=== PATIENT | male | born 1955 | race Caucasian/White ===

== ENCOUNTER 2025-01-12 12:01 | Inpatient (IN) | payer BC, OTHER ==
[2025-01-12] VITALS (18 sets, daily range): BP systolic 81–146; BP diastolic 54–97; TEMP 98.3–98.8; O2SAT 100
[~2025-01-12] VITALS: Ht 177.8 cm; Wt 73.5 kg
[2025-01-12] MEDS ORDERED: diphenhydrAMINE 50 MG/1 ML VIAL ONE (12:08)
[2025-01-12] MEDS ORDERED: methylPREDNISolone SOD SUCC 125 MG/2 ML VIAL ONE (12:08)
[2025-01-12] MEDS ORDERED: FAMOTIDINE. 20 MG/2 ML VIAL IV ONE ×2 (12:08→13:15)
[2025-01-12] MEDS: FAMOTIDINE. 20 MG/2 ML VIAL IV ONE (12:10)
[2025-01-12] MEDS: diphenhydrAMINE 50 MG/1 ML VIAL IV ONE (12:10)
[2025-01-12] MEDS ORDERED: EPINEPHRINE 1:10,000 1 MG/10 ML DISP.SYRIN ONE (12:15)
[2025-01-12] MEDS: IV NORMAL SALINE 1000 ML BAG IV ONE (12:37)
[2025-01-12 12:39] LABS: ABG BASE EXCESS -12.7 mmol/L (-2.0-3.0); ABG HCO3 12.9 mmol/L (21.0-28.0); ABG PCO2 28.8 mmHg (35.0-48.0); ABG PH 7.269 (7.350-7.450); ABG PO2 320.8 mmHg (83.0-108.0); ABG TOTAL HEMOGLOBIN 10.9 G/dL (13.5-17.5); AaDO2 99.7 mmHg; COHb 0.1 % (0.5-1.5); O2Hb 99.5 % (94.0-98.0); VT, ABG 500 mL
[2025-01-12] MEDS: EPINEPHRINE 5 MG in IV NORMAL SALINE 245 ML IV PRN (12:40)
[2025-01-12 12:47] LABS: BASOPHILS # (AUTO) 0.1 K/UL (0.0-0.2); BASOPHILS % (AUTO) 1.1 % (0.0-2.0); DIFFERENTIAL COMMENT 1; HEMATOCRIT 30.8 % (36.7-47.1); LYMPHOCYTES # (AUTO) 2.8 K/uL (0.8-4.8); LYMPHOCYTES % (AUTO) 55.5 % (20.5-51.5); MEAN CORPUSCULAR HEMOGLOBIN 29.4 uug (23.8-33.4); MEAN CORPUSCULAR HGB CONC 33 g/dL (32.5-36.3); MEAN CORPUSCULAR VOLUME 90.3 fL (73.0-96.2); MONOCYTES # (AUTO) 0.1 K/uL (0.1-1.30); MONOCYTES % (AUTO) 2.1 % (0.0-11.0); NEUTROPHILS # (AUTO) 2.1 K/uL (1.8-8.9); NEUTROPHILS % (AUTO) 41.3 % (38.5-71.5); PLATELET COUNT (AUTO) 129 K/uL (152-348); RED BLOOD CELL COUNT(AUTO) 3.41 MIL/uL (4.06-5.63); RED CELL DISTRIBUTION WIDTH 20.5 % (12.1-16.2)
[2025-01-12] MEDS ORDERED: EPINEPHRINE-PF 1:1000 1 MG/ML AMPUL/VIAL ONE (12:50)
[2025-01-12] MEDS ORDERED: PROPOFOL 100 ML ONE (12:51)
[2025-01-12] MEDS: PROPOFOL 100 ML IV PRN ×3 (12:55→19:02)
[2025-01-12] MEDS ORDERED: VANCOMYCIN IV 200 ML ONE (13:06)
[2025-01-12] MEDS ORDERED: PIPERACILLIN/TAZOBACTAM/D5W 50 ML IV ONE (13:06)
[2025-01-12] MEDS: VANCOMYCIN IV 1,000 MG in IV DEXTROSE 5% 250 ML IV ONE (13:12)
[2025-01-12] MEDS: PIPERACILLIN SODIUM/TAZOBACTAM 3.375 G in IV DEXTROSE 5% 50 ML IV ONE (13:13)
[2025-01-12 13:18] LABS: LACTIC ACID 4.6 mmol/L (0.4-2.0)
[2025-01-12 13:19] LABS: CALCIUM 7.8 mg/dL (8.5-10.1); CREATININE 0.9 mg/dL (0.6-1.3); POTASSIUM 4.4 mmol/L (3.5-5.1)
[2025-01-12 13:25] LABS: *BILIRUBIN,URIN NEGATIVE (NEGATIVE); *CLARITY,URINE CLEAR (CLEAR); *COLOR,URINE YELLOW (YELLOW); *KETONES,URINE NEGATIVE (NEGATIVE); *UROBILINOGEN,URINE 0.2 E.U./dl (NORMAL); LEUKOCYTE ESTERASE ,URINE NEGATIVE (NEGATIVE); NITRITE, URINE NEGATIVE (NEGATIVE)
[2025-01-12 13:26] LABS: ALBUMIN 2.3 g/dL (3.4-5.0); BILIRUBIN,DIRECT 0.2 mg/dL (0.0-0.2); BILIRUBIN,TOTAL 0.6 mg/dL (0.2-1.0); TOTAL PROTEIN, SERUM 5.5 g/dL (6.4-8.2)
[2025-01-12 13:27] LABS: *PROTEIN,URINE 3+ (NEGATIVE)
[2025-01-12 13:28] LABS: *BLOOD, URINE TRACE (NEGATIVE); UGLUCOSE 3+ (NEGATIVE)
[2025-01-12 13:35] LABS: WBC,URINE 0-3 /HPF (0-3)
[2025-01-12 13:36] LABS: BACTERIA,URINE FEW /HPF (NONE SEEN); SQUAMOUS EPITHELIAL CELL,UR FEW /HPF (NONE SEEN)
[2025-01-12 14:20] LABS: THYROID STIMULATING HORMONE 2.616 mIU/mL (0.358-3.740)
[2025-01-12] MEDS ORDERED: INSU100I26 SQ (14:47)
[2025-01-12] MEDS ORDERED: LACT10SO58 PO (14:47)
[2025-01-12] MEDS ORDERED: SIMV-49 PO (14:47)
[2025-01-12] MEDS ORDERED: EMPA10TA PO (14:47)
[2025-01-12] MEDS ORDERED: CARV12.52 PO (14:47)
[2025-01-12] MEDS ORDERED: LISI20TA30 PO (14:47)
[2025-01-12 14:52] LABS: MAGNESIUM 1.9 mg/dL (1.8-2.4); PHOSPHOROUS 4.7 mg/dL (2.5-4.9)
[2025-01-12] MEDS ORDERED: METF-440 PO (14:52)
[2025-01-12] MEDS: NOREPINEPHRINE 8MG/NS 250ML 250 ML IV PRN (15:35)
[2025-01-12 17:20] LABS: ABG BASE EXCESS -13.2 mmol/L (-2.0-3.0); ABG HCO3 11.9 mmol/L (21.0-28.0); ABG PCO2 25.7 mmHg (35.0-48.0); ABG PH 7.283 (7.350-7.450); ABG PO2 217.8 mmHg (83.0-108.0); ABG SITE RIGHT RADIAL; ABG TOTAL HEMOGLOBIN 11.6 G/dL (13.5-17.5); AaDO2 99.4 mmHg; COHb 0.3 % (0.5-1.5); MetHb 0.2 % (0.0-1.5); O2Hb 98.7 % (94.0-98.0); VT, ABG 500 mL
[2025-01-12] MEDS ORDERED: NOREPINEPHRINE 8MG/NS 250ML 250 ML IV PRN (18:00)
[2025-01-12] MEDS ORDERED: REMEDY ESSENTIAL ZINC PASTE 113 GM TP PRN (18:00)
[2025-01-12] MEDS ORDERED: ONDANSETRON 4 MG/2 ML VIAL IV PRN (18:00)
[2025-01-12] MEDS ORDERED: DEXTROSE 50% 50 ML DISP.SYRIN IV PRN (18:15)
[2025-01-12] MEDS: BLOOD SUGAR DIAGNOSTIC 1 EACH STRIP VI SCH (18:58)
[2025-01-12] MEDS: IV LACTATED RINGERS SOLUTION 1,000 ML IV SCH (18:59)
[2025-01-12] MEDS: HYDROCORTISONE SOD SUCCINATE 100 MG/2 ML VIAL IV SCH (19:00)
[2025-01-12] MEDS: INSULIN REGULAR, HUMAN 1000 UNIT/10 ML VIAL SQ PRN (19:09)
[2025-01-12 19:18] LABS: LIPASE 112 U/L (16-77)
[2025-01-12 19:21] LABS: THYROID STIMULATING HORMONE 0.768 mIU/mL (0.358-3.740)
[2025-01-12 19:35] LABS: CHOLESTEROL 121 mg/dL (<200); HDL CHOLESTEROL 50 mg/dL (40-60); TRIGLYCERIDES 98 MG/DL (30-150)
[2025-01-12] MEDS: SIMVASTATIN 40 MG TABLET PO SCH (21:00)
[2025-01-12] MEDS ORDERED: IOHEXOL 350 100 ML INFUS..BTL ONE (21:16)
[2025-01-12] MEDS ORDERED: IV NORMAL SALINE 250 ML IV ONE (21:16)
[2025-01-12] MEDS ORDERED: SWABABLE VALVE TRANSFER SET EA MC ONE (21:16)
[2025-01-12] MEDS: FAMOTIDINE. 20 MG/2 ML VIAL IV SCH (22:02)
[2025-01-12] MEDS: ENOXAPARIN SODIUM 40 MG/0.4 ML DISP.SYRIN SQ SCH (22:04)
[2025-01-12] MEDS: PIPERACILLIN SODIUM/TAZOBACTAM 3.375 G in IV DEXTROSE 5% 50 ML IV SCH (22:04)
[2025-01-12] MEDS: VANCOMYCIN IV 1,250 MG in IV DEXTROSE 5% 250 ML IV SCH (22:06)
[2025-01-13] VITALS (58 sets, daily range): BP systolic 77–187; BP diastolic 52–139; TEMP 98–98.6; O2SAT 97–100
[2025-01-13] MEDS: HEPARIN SODIUM,PORCINE 5,000 UNITS/ML VIAL IV ONE (03:42)
[2025-01-13] MEDS: HEPARIN/D5W DRIP 500 ML IV STA (03:47)
[2025-01-13 05:00] LABS: BASOPHILS % (AUTO) 0.4 % (0.0-2.0); HEMATOCRIT 30.9 % (36.7-47.1); HEMOGLOBIN 10.4 g/dL (12.5-16.3); LYMPHOCYTES # (AUTO) 2.5 K/uL (0.8-4.8); LYMPHOCYTES % (AUTO) 22.8 % (20.5-51.5); MEAN CORPUSCULAR HEMOGLOBIN 29.5 uug (23.8-33.4); MEAN CORPUSCULAR HGB CONC 34 g/dL (32.5-36.3); MEAN CORPUSCULAR VOLUME 87.8 fL (73.0-96.2); MONOCYTES # (AUTO) 0.7 K/uL (0.1-1.30); MONOCYTES % (AUTO) 6.2 % (0.0-11.0); NEUTROPHILS # (AUTO) 7.7 K/uL (1.8-8.9); NEUTROPHILS % (AUTO) 70.6 % (38.5-71.5); PLATELET COUNT (AUTO) 185 K/uL (152-348); RED BLOOD CELL COUNT(AUTO) 3.52 MIL/uL (4.06-5.63); RED CELL DISTRIBUTION WIDTH 20.3 % (12.1-16.2); WHITE BLOOD COUNT (AUTO) 10.8 K/uL (3.6-10.2)
[2025-01-13 05:21] LABS: DIFFERENTIAL COMMENT 1
[2025-01-13 05:31] LABS: ALBUMIN 2.6 g/dL (3.4-5.0); BILIRUBIN,TOTAL 0.6 mg/dL (0.2-1.0); CALCIUM 7.9 mg/dL (8.5-10.1); CREATININE 0.8 mg/dL (0.6-1.3); MAGNESIUM 1.9 mg/dL (1.8-2.4); PHOSPHOROUS 3.5 mg/dL (2.5-4.9); POTASSIUM 4.5 mmol/L (3.5-5.1)
[2025-01-13 06:09] LABS: ABG BASE EXCESS -11.8 mmol/L (-2.0-3.0); ABG HCO3 11.6 mmol/L (21.0-28.0); ABG PCO2 20.5 mmHg (35.0-48.0); ABG PH 7.369 (7.350-7.450); ABG SITE RIGHT RADIAL; ABG TOTAL HEMOGLOBIN 10.9 G/dL (13.5-17.5); AaDO2 98.9 mmHg; COHb 0.3 % (0.5-1.5); MetHb 0.3 % (0.0-1.5); VT, ABG 500 mL
[2025-01-13] MEDS ORDERED: HEPARIN/D5W DRIP 500 ML IV PRN (07:45)
[2025-01-13] MEDS ORDERED: PANTOPRAZOLE SODIUM 40 MG VIAL IV SCH (09:00)
[2025-01-13] MEDS ORDERED: MORPHINE SULFATE 2 MG/1 ML DISP.SYRIN IV PRN (11:30)
[2025-01-13] MEDS: MORPHINE SULFATE 2 MG/1 ML DISP.SYRIN IV PRN (11:41)
[2025-01-13 12:22] LABS: ABG BASE EXCESS -9.7 mmol/L (-2.0-3.0); ABG HCO3 14.2 mmol/L (21.0-28.0); ABG PCO2 25.4 mmHg (35.0-48.0); ABG PH 7.365 (7.350-7.450); ABG PO2 141.5 mmHg (83.0-108.0); ABG SITE RIGHT RADIAL; ABG TOTAL HEMOGLOBIN 10.5 G/dL (13.5-17.5); AaDO2 98.8 mmHg; COHb 0.3 % (0.5-1.5); MetHb 0.3 % (0.0-1.5); O2Hb 98.1 % (94.0-98.0)
[2025-01-13] MEDS: ENOXAPARIN SODIUM 80 MG/0.8 ML DISP.SYRIN SQ SCH (13:58)
[2025-01-13] MEDS: SODIUM CITRATE/CITRIC ACID (500/334MG/5ML) UDC 30 ML SOLUTION PO SCH (13:59)
[2025-01-13] MEDS: PIPERACILLIN SODIUM/TAZOBACTAM 3.375 G in IV DEXTROSE 5% 100 ML IV SCH (14:00)
[2025-01-13] MEDS: HYDROCORTISONE SOD SUCCINATE 100 MG/2 ML VIAL IV SCH (20:36)
[2025-01-14] VITALS (97 sets, daily range): BP systolic 89–147; BP diastolic 57–135; TEMP 98.2–99.1; O2SAT 98–100
[2025-01-14] MEDS: ENOXAPARIN SODIUM 80 MG/0.8 ML DISP.SYRIN SQ SCH (02:13)
[2025-01-14] MEDS: SORBITOL 70% SOLUTION 30 ML UDC NG SCH (08:36)
[2025-01-14 09:16] LABS: BASOPHILS % (AUTO) 0.3 % (0.0-2.0); DIFFERENTIAL COMMENT 0; HEMATOCRIT 28.5 % (36.7-47.1); HEMOGLOBIN 9.5 g/dL (12.5-16.3); LYMPHOCYTES # (AUTO) 2.8 K/uL (0.8-4.8); LYMPHOCYTES % (AUTO) 32.9 % (20.5-51.5); MEAN CORPUSCULAR HEMOGLOBIN 29.5 uug (23.8-33.4); MEAN CORPUSCULAR HGB CONC 33 g/dL (32.5-36.3); MEAN CORPUSCULAR VOLUME 88.9 fL (73.0-96.2); MONOCYTES # (AUTO) 1.3 K/uL (0.1-1.30); MONOCYTES % (AUTO) 15.5 % (0.0-11.0); NEUTROPHILS # (AUTO) 4.3 K/uL (1.8-8.9); NEUTROPHILS % (AUTO) 51.3 % (38.5-71.5); PLATELET COUNT (AUTO) 198 K/uL (152-348); RED CELL DISTRIBUTION WIDTH 21.1 % (12.1-16.2); WHITE BLOOD COUNT (AUTO) 8.4 K/uL (3.6-10.2)
[2025-01-14 10:01] LABS: CALCIUM 8.1 mg/dL (8.5-10.1); CREATININE 0.8 mg/dL (0.6-1.3); MAGNESIUM 1.7 mg/dL (1.8-2.4); PHOSPHOROUS 3.2 mg/dL (2.5-4.9); POTASSIUM 3.5 mmol/L (3.5-5.1); VANCOMYCIN,TROUGH 21.7 ug/mL (10.0-20.0)
[2025-01-14 11:10] LABS: BAND % (MANUAL) 5 % (0-10); LYMPHOCYTES % (MANUAL) 30 % (20-40); MONOCYTES % (MANUAL) 15 % (2-10); NEUTROPHILS % (MANUAL) 47 % (42-75); REACTIVE LYMPHOCYTES 3 % (0-0)
[2025-01-14 11:11] LABS: ANISOCYTOSIS 1+; PLATELET ESTIMATE ADEQUATE
[2025-01-14] MEDS: VANCOMYCIN IV 1,250 MG in IV DEXTROSE 5% 250 ML IV SCH (11:47)
[2025-01-14] MEDS ORDERED: VANCOMYCIN IV 1,250 MG in IV DEXTROSE 5% 250 ML IV SCH (12:00)
[2025-01-14] MEDS: APIXABAN 5 MG TABLET PO SCH (13:28)
[2025-01-15] VITALS (74 sets, daily range): BP systolic 83–127; BP diastolic 56–92; TEMP 98–98.6; O2SAT 95–100
[2025-01-15 05:12] LABS: BASOPHILS % (AUTO) 0.3 % (0.0-2.0); EOSINOPHILS % (AUTO) 0.4 % (0.0-7.0); LYMPHOCYTES # (AUTO) 2.1 K/uL (0.8-4.8); LYMPHOCYTES % (AUTO) 43.7 % (20.5-51.5); MEAN CORPUSCULAR HEMOGLOBIN 29.5 uug (23.8-33.4); MEAN CORPUSCULAR HGB CONC 33 g/dL (32.5-36.3); MEAN CORPUSCULAR VOLUME 88.8 fL (73.0-96.2); MONOCYTES # (AUTO) 0.9 K/uL (0.1-1.30); MONOCYTES % (AUTO) 18.8 % (0.0-11.0); NEUTROPHILS # (AUTO) 1.8 K/uL (1.8-8.9); NEUTROPHILS % (AUTO) 36.8 % (38.5-71.5); PLATELET COUNT (AUTO) 169 K/uL (152-348); RED BLOOD CELL COUNT(AUTO) 3.04 MIL/uL (4.06-5.63); RED CELL DISTRIBUTION WIDTH 20.7 % (12.1-16.2); WHITE BLOOD COUNT (AUTO) 4.9 K/uL (3.6-10.2)
[2025-01-15 05:15] LABS: DIFFERENTIAL COMMENT 1
[2025-01-15 05:16] LABS: NEUTROPHILS % (MANUAL) 0 % (42-75)
[2025-01-15 05:21] LABS: CALCIUM 7.8 mg/dL (8.5-10.1); CREATININE 0.9 mg/dL (0.6-1.3); MAGNESIUM 1.7 mg/dL (1.8-2.4); PHOSPHOROUS 2.1 mg/dL (2.5-4.9); POTASSIUM 3.2 mmol/L (3.5-5.1)
[2025-01-15] MEDS ORDERED: POTASSIUM CHLORIDE 20 MEQ POWDER PACKET GT ONE (07:30)
[2025-01-15] MEDS: POTASSIUM CHLORIDE 50 ML IV SCH (07:42)
[2025-01-15] MEDS: MAGNESIUM SULFATE/D5W 100 ML IV SCH (07:43)
[2025-01-15] MEDS: POTASSIUM CHLORIDE 20 MEQ TAB.PRT.SR PO ONE (08:09)
[2025-01-15] MEDS: FAMOTIDINE 20 MG TABLET PO SCH (09:10)
[2025-01-15] MEDS: IV NORMAL SALINE 250 ML IV ONE ×2 (10:50→11:21)
[2025-01-15] MEDS: NEUTRA PHOS PACKET PO ONE (16:19)
[2025-01-16] VITALS (24 sets, daily range): BP systolic 94–121; BP diastolic 60–87; TEMP 97.8–98.7; O2SAT 92–99
[2025-01-16 05:25] LABS: BASOPHILS % (AUTO) 0.7 % (0.0-2.0); EOSINOPHILS # (AUTO) 0.1 K/uL (0.0-0.7); EOSINOPHILS % (AUTO) 1.9 % (0.0-7.0); HEMOGLOBIN 7.7 g/dL (12.5-16.3); LYMPHOCYTES # (AUTO) 1.5 K/uL (0.8-4.8); LYMPHOCYTES % (AUTO) 45.8 % (20.5-51.5); MEAN CORPUSCULAR HEMOGLOBIN 29.8 uug (23.8-33.4); MEAN CORPUSCULAR HGB CONC 33 g/dL (32.5-36.3); MEAN CORPUSCULAR VOLUME 89.2 fL (73.0-96.2); MONOCYTES # (AUTO) 0.7 K/uL (0.1-1.30); MONOCYTES % (AUTO) 19.6 % (0.0-11.0); NEUTROPHILS # (AUTO) 1.1 K/uL (1.8-8.9); PLATELET COUNT (AUTO) 137 K/uL (152-348); RED BLOOD CELL COUNT(AUTO) 2.58 MIL/uL (4.06-5.63); RED CELL DISTRIBUTION WIDTH 20.7 % (12.1-16.2); WHITE BLOOD COUNT (AUTO) 3.3 K/uL (3.6-10.2)
[2025-01-16 05:32] LABS: DIFFERENTIAL COMMENT 1
[2025-01-16 05:36] LABS: NEUTROPHILS % (MANUAL) 0 % (42-75)
[2025-01-16 05:46] LABS: CALCIUM 7.4 mg/dL (8.5-10.1); CREATININE 0.7 mg/dL (0.6-1.3); MAGNESIUM 1.9 mg/dL (1.8-2.4); PHOSPHOROUS 2.4 mg/dL (2.5-4.9); POTASSIUM 3.5 mmol/L (3.5-5.1)
[2025-01-16] MEDS: CARVEDILOL 6.25 MG TABLET PO SCH (12:04)
[2025-01-16] MEDS: NEUTRA PHOS PACKET PO ONE (17:34)
[2025-01-16] MEDS: EPOETIN ALFA 20,000 UNIT/ML ML SQ ONE (17:35)
[2025-01-16] MEDS: GLUCERNA SHAKE 237 ML CAN PO SCH (19:09)
[2025-01-17] VITALS (19 sets, daily range): BP systolic 102–161; BP diastolic 63–84; TEMP 97.8–98.4; O2SAT 94–98
[2025-01-17 04:41] LABS: BASOPHILS % (AUTO) 0.5 % (0.0-2.0); EOSINOPHILS # (AUTO) 0.1 K/uL (0.0-0.7); EOSINOPHILS % (AUTO) 2.8 % (0.0-7.0); HEMATOCRIT 23.3 % (36.7-47.1); HEMOGLOBIN 7.7 g/dL (12.5-16.3); LYMPHOCYTES # (AUTO) 1.7 K/uL (0.8-4.8); LYMPHOCYTES % (AUTO) 45.1 % (20.5-51.5); MEAN CORPUSCULAR HEMOGLOBIN 29.8 uug (23.8-33.4); MEAN CORPUSCULAR HGB CONC 33 g/dL (32.5-36.3); MEAN CORPUSCULAR VOLUME 89.8 fL (73.0-96.2); MONOCYTES # (AUTO) 0.8 K/uL (0.1-1.30); MONOCYTES % (AUTO) 21.6 % (0.0-11.0); NEUTROPHILS # (AUTO) 1.1 K/uL (1.8-8.9); PLATELET COUNT (AUTO) 145 K/uL (152-348); RED BLOOD CELL COUNT(AUTO) 2.59 MIL/uL (4.06-5.63); RED CELL DISTRIBUTION WIDTH 20.5 % (12.1-16.2); WHITE BLOOD COUNT (AUTO) 3.8 K/uL (3.6-10.2)
[2025-01-17 04:57] LABS: DIFFERENTIAL COMMENT 1
[2025-01-17 05:11] LABS: CALCIUM 7.7 mg/dL (8.5-10.1); CREATININE 0.7 mg/dL (0.6-1.3); MAGNESIUM 1.8 mg/dL (1.8-2.4); PHOSPHOROUS 2.8 mg/dL (2.5-4.9); POTASSIUM 3.6 mmol/L (3.5-5.1)
[2025-01-17 05:46] LABS: NEUTROPHILS % (MANUAL) 0 % (42-75)
[2025-01-17] MEDS ORDERED: CELECOXIB 100 MG CAPSULE PO SCH (21:00)
[2025-01-18 00:10] VITALS: BP 113/73; TEMP 98.7; O2SAT 93
[2025-01-18 05:47] VITALS: BP 115/72; TEMP 98.8; O2SAT 97
[2025-01-18 07:33] VITALS: BP 119/74; TEMP 98.1; O2SAT 97
[2025-01-18 11:07] VITALS: BP 125/77; TEMP 98.6; O2SAT 98
[2025-01-18 15:47] VITALS: BP 137/80; TEMP 98.6; O2SAT 98
[2025-01-18] MEDS ORDERED: DEXTROSE 50% 50 ML DISP.SYRIN IV PRN (18:30)
[2025-01-18 19:48] VITALS: BP 110/70; TEMP 98.6; O2SAT 97
[2025-01-18] MEDS: INSULIN REGULAR, HUMAN 1000 UNIT/10 ML VIAL SQ PRN (20:46)
[2025-01-18] MEDS: BLOOD SUGAR DIAGNOSTIC 1 EACH STRIP VI SCH (20:57)
[2025-01-19 06:43] VITALS: BP 120/71; TEMP 98.2; O2SAT 97
[2025-01-19 07:40] VITALS: BP 125/76; TEMP 97.8; O2SAT 97
[2025-01-19 11:06] VITALS: BP 131/83; TEMP 98.2; O2SAT 97
[2025-01-19] MEDS ORDERED: APIX5TAB PO (13:04)
[2025-01-19] MEDS ORDERED: FAMO20TA8 PO (13:04)
[2025-01-19] MEDS ORDERED: SIMV-49 PO (13:04)
[2025-01-19] MEDS ORDERED: CARV6.252 PO (13:04)
[2025-01-19 15:29] VITALS: BP 117/66; TEMP 98.3; O2SAT 97
== END 2025-01-19 17:25 | disposition home health service (06) | DRG 915 ==
LOC: ER 12:01 → CCU 14:21 → TELE3 01-17 16:59
PROVIDERS: ADMIT Nurse Practitioner Acute Care; ATTEND Nurse Practitioner Acute Care
PROC: 5A1945Z Respiratory Ventilation, 24-96 Consecutive Hours (ICD-10-PCS; principal; 2025-01-12)
PROC: 0BH17EZ Insertion of Endotracheal Airway into Trachea, Via Natural or Artificial Opening (ICD-10-PCS; 2025-01-12)
PROC: 06HY33Z Insertion of Infusion Device into Lower Vein, Percutaneous Approach (ICD-10-PCS; 2025-01-12)
DX: T88.6XXA Anaphylactic reaction due to adverse effect of correct drug or medicament properly administered, initial encounter (principal); G93.41 Metabolic encephalopathy; I26.93 Single subsegmental thrombotic pulmonary embolism without acute cor pulmonale; I21.A1 Myocardial infarction type 2; J96.00 Acute respiratory failure, unspecified whether with hypoxia or hypercapnia; I46.9 Cardiac arrest, cause unspecified; R65.10 Systemic inflammatory response syndrome (SIRS) of non-infectious origin without acute organ dysfunction; I51.81 Takotsubo syndrome; D68.69 Other thrombophilia; C16.0 Malignant neoplasm of cardia; E44.0 Moderate protein-calorie malnutrition; E87.20 Acidosis, unspecified; E87.1 Hypo-osmolality and hyponatremia; E72.20 Disorder of urea cycle metabolism, unspecified; T45.1X5A Adverse effect of antineoplastic and immunosuppressive drugs, initial encounter; Y92.538 Other ambulatory health services establishments as the place of occurrence of the external cause; E88.09 Other disorders of plasma-protein metabolism, not elsewhere classified; E78.5 Hyperlipidemia, unspecified; D69.6 Thrombocytopenia, unspecified; E11.9 Type 2 diabetes mellitus without complications; D70.1 Agranulocytosis secondary to cancer chemotherapy; K59.00 Constipation, unspecified; I25.2 Old myocardial infarction; D64.81 Anemia due to antineoplastic chemotherapy; D63.8 Anemia in other chronic diseases classified elsewhere; Z78.1 Physical restraint status; Z79.899 Other long term (current) drug therapy; Z79.84 Long term (current) use of oral hypoglycemic drugs; Z79.4 Long term (current) use of insulin
CPT/HCPCS: 36415; 36600; 70450; 71045; 71275; 82803; 83605; 83690; 83735; 84100; 84443; 84484; 85025; 85730; 87040; 87086; 93005; 93307; 94002; 94003; 94760; A4606; A4663; G0378; J0171; J0885; J1200; J1644; J1650; J1720; J1815; J2270; J2543; J2919; J3370; J3475; J3480; J3490; J7050; J7120; Q9967